=== PATIENT | female | born 1955 | race Caucasian/White ===

== ENCOUNTER 2024-07-17 11:49 | Emergency (ER) | payer OTHER ==
[~2024-07-17] VITALS: Ht 162.6 cm; Wt 59.0 kg
--- NOTE | 2024-07-17 12:09 | ERN ---
ED Note History of Present Illness Stated Complaint: ABDOMINAL PAIN Time Seen by MD: 11:50 Dictation: PATIENT IS A 69-YEAR-OLD FEMALE HERE WITH HER SISTER WITH COMPLAINTS OF HAVING ANTERIOR CHEST PAIN WORSE WITH COUGH OR INSPIRATION ONSET THREE DAYS PRIOR TO ARRIVAL. PATIENT STATES SHE HAD BEEN SICK AND BEEN COUGHING AND THEN NOW SHE IS NO LONGER COUGHING HOWEVER CONTINUES TO HAVE THE CHEST PAIN WHEN SHE PRESSES OR TAKES A DEEP BREATH. DENIES ANY HISTORY OF CAD PACEMAKER OR CARDIAC DISEASE. NO PRIMARY CARE DOCTOR LOCALLY, THEY ARE HERE ON VACATION IN [place]. Allergies: Coded Allergies: No Known Drug Allergies (Unverified Allergy, Unknown, 07/17/24) Home Meds Active Scripts Ibuprofen (Ibuprofen) 600 Mg Tablet, 600 MG PO Q6H PRN for PAIN, #30 TAB Prov:SHAYLA RANGEL NP 07/17/24 Azithromycin (Zithromax Tri-Eamon) 500 Mg Tablet, 500 MG PO DAILY for 7 Days, #7 TAB Prov:SHAYLA RANGEL ROOFER HELPER 07/17/24 Prednisone (Prednisone) 20 Mg Tablet, 1 TAB PO AD for 6 Days, #14 TAB 0 Refills TAKE 1 TAB BY MOUTH THREE TIMES PER DAY X3 DAYS, THEN TAKE 1 TAB BY MOUTH TWICE A DAY X2 DAYS, THEN TAKE 1 TAB BY MOUTH ONCE A DAY X1 DAY. Prov:SHAYLA RANGEL NP 07/17/24 Past Medical History History: Not Applicable RN Note Reviewed/Agreed w/PFSH: Yes Review of System Dictation CONSTITUTIONAL: NEGATIVE EXCEPT FOR HPI HEAD/FACE: NEGATIVE EXCEPT FOR HPI EENT: NEGATIVE EXCEPT FOR HPI RESPIRATORY: NEGATIVE EXCEPT FOR HPI CHEST PAIN WORSE WITH INSPIRATION OR COUGH GASTROINTESTINAL/ABDOMINAL: NEGATIVE EXCEPT FOR HPI GENITOURINARY: NEGATIVE EXCEPT FOR HPI MUSCULOSKELETAL: NEGATIVE EXCEPT FOR HPI INTEGUMENTARY: NEGATIVE EXCEPT FOR HPI NEUROLOGICAL/PSYCH: NEGATIVE EXCEPT FOR HPI HEMATOLOGIC/LYMPHATIC: NEGATIVE EXCEPT FOR HPI ALL SYSTEMS NEGATIVE, EXCEPT NOTED ABOVE. 13 POINT REVIEW OF SYSTEMS ASSESSED AND ALL NEGATIVE EXCEPT FOR ABOVE. Initial Vital Sign VS Vital Signs Date Time Temp Pulse Resp B/P (MAP) Pulse Ox O2 Delivery O2 Flow Rate FiO2 07/17/24 12:10 98.1 89 16 154/93 96 Room Air* 0 21 Physical Exam Dictation VITAL SIGNS REVIEWED GENERAL APPEARANCE: ALERT, ORIENTED X 3, NO ACUTE DISTRESS, WELL DEVELOPED, NOURISHED. HEAD AND FACE: NON-TRAUMATIC. EYES: PERRL, PINK CONJUNCTIVAS, EYELID NO TRAUMA, ANTERIOR CHAMBER WITH ARCUS SENILIS. EARS: PINNAS INTACT AND NO SIGNS OF TRAUMA OR ERYTHEMA EAR CANALS CLEAR AND NO DISCHARGE TM NO ERYTHEMA NOSE: NO DISCHARGE, NO BLEEDING. OROPHARYNX: MOUTH NORMAL, TONGUE PINK, PHARYNX CLEAR,NO ERYTHEMA, TONSILS NO EXUDATES, NO ABSCESSES NOTED, MUCOUS MEMBRANE MOIST NECK: SUPPLE, NON-TENDER, NO THYROMEGALY, NO MASSES, NO JVD, NO BRUITS BREAST:DEFERRED CHEST: MILD DIFFUSE ANTERIOR CHEST WALL TENDERNESS WITH PALPATION ENDERNESS, NO CREPITUS, NO PARADOXICAL MOVEMENT, NO RETRACTIONS LUNGS:CLEAR, WELL-VENTILATED, SYMMETRIC, NO RALES, NO WHEEZING, NO RHONCHI, NO STRIDOR, GOOD BREATH SOUNDS BILATERALLY HEART: REGULAR RATE, REGULAR RHYTHM, NO MURMUR, NO GALLOPS VASCULAR: NO PERIPHERAL EDEMA, ABDOMEN: SOFT, POSITIVE BOWEL SOUNDS, NONDISTENDED, NO GUARDING, NONTENDER, NO REBOUND, NO MASSES NO HEPATOMEGALY, NO SPLENOMEGALY, NO PEREZ'S SIGN, NO HERNIAS. RECTAL: DEFERRED GENITAL: DEFERRED NEUROLOGICAL: NORMAL SPEECH, MOTOR FUNCTION INTACT, SENSORY FUNCTION INTACT MUSCULOSKELETAL: NECK NONTENDER, FULL RANGE OF MOTION, BACK NONTENDER, FULL RANGE OF MOTION, EXTREMITIES: NONTENDER, FULL RANGE OF MOTION SKIN: COLOR PINK, DRY, NO TURGOR, NO RASH, NO LACERATIONS, NO ABRASIONS, NO CONTUSIONS. LYMPHATIC: DEFERRED Results (Laboratory/Radiology) Laboratory/Radiology Laboratory Tests Test 07/17/24 12:35 White Blood Count 10.2 K/uL (4.8-10.8) Red Blood Count 4.73 MIL/uL (4.00-5.50) Hemoglobin 13.5 g/dL (12.0-16.0) Hematocrit 41.3 % (36-48) Mean Corpuscular Volume 87.3 fL (79-99) Mean Corpuscular Hemoglobin 28.5 pg (27.0-33.0) Mean Corpuscular Hemoglobin Concent 32.7 g/dL (32.0-36.0) Red Cell Distribution Width 14.1 % (11.0-15.5) Platelet Count 475 K/uL (130-400) H Mean Platelet Volume 10.2 fL (7.5-10.5) Immature Granulocyte % (Auto) 0.3 % (0-1) Neutrophils (%) (Auto) 70.9 % (40.0-77.0) Lymphocytes (%) (Auto) 20.2 % (21.0-51.0) L Monocytes (%) (Auto) 6.7 % (3.0-13.0) Eosinophils (%) (Auto) 1.2 % (0.0-8.0) Basophils (%) (Auto) 0.7 % (0.0-5.0) Neutrophils # (Auto) 7.2 K/uL (1.8-7.7) Lymphocytes # (Auto) 2.1 K/uL (1.0-4.8) Monocytes # (Auto) 0.7 K/uL (0.1-1.0) Eosinophils # (Auto) 0.12 K/uL (0.00-0.70) Basophils # (Auto) 0.07 K/uL (0.00-0.20) Absolute Immature Granulocyte (auto 0.03 K/uL (0-1) Nucleated Red Blood Cells 0.0 % (0.0-0.19) Sodium Level 137 mmol/L (136-145) Potassium Level 3.8 mmol/L (3.5-5.1) Chloride Level 101 mmol/L (101-111) Carbon Dioxide Level 29 mmol/L (21-32) Blood Urea Nitrogen 12 mg/dL (7-18) Creatinine 0.6 mg/dL (0.5-1.0) Glomerular Filtration Rate Calc 97 mL/min (>90) Random Glucose 92 mg/dL (70-105) Total Calcium 10.0 mg/dL (8.5-10.1) Troponin I High Sensitivity 4 ng/L (4-50) INDICATION: CHEST PAIN WITH COUGH THREE DAYS TECHNIQUE: CHEST 1VW COMPARISON: None FINDINGS/IMPRESSION: Prominent bilateral interstitial markings which may represent bronchitis or vascular congestion in the proper clinical setting. Cardiac silhouette is within normal limits. Mild degenerative changes of the spine. The visualized upper abdomen appears unremarkable. Labs Reviewed?: Yes EKG Comment: PROCEDURE: EKG - 12 LEAD EKG TRACING- TECHNICAL [facility] Test Date: 2024-07-17 Test Time: 15:08:49 Pat Name: MARTINEZ MARCELINO Department: [facility] Patient [place] [facility] [place] [facility] [id number] Room: Gender: Female Fire Medic: [id number] : 1955 Requested By: SHAYLA RANGEL Order Number: [id number] Reading MD: Measurements Intervals [place] Rate: 87 P: 54 ND: 136 QRS: 42 QRSD: 96 T: -17 QT: 378 QTc: 454 Interpretive Statements Sinus rhythm Probable left atrial enlargement Left ventricular hypertrophy Lateral infarct, age indeterminate No previous ECG available for comparison Please click the below link to view image of tracing. ED Course ED Course Orders Procedure Category Date Status Time Dexamethasone 4mg/Ml PHA 07/17/24 Complete 1ml Vial (Dexametha 12:30 Ibuprofen 600 Mg PHA 07/17/24 Complete Tablet (Motrin) 12:30 Cbc With Differential LAB 07/17/24 Complete 12:07 Troponin I High LAB 07/17/24 Complete Sensitivity 12:07 12 Lead Ekg Tracing- EKG 07/17/24 Resulted Technical 12:07 Chest 1vw RAD 07/17/24 Resulted 12:07 Basic Metabolic Panel LAB 07/17/24 Complete 12:07 Azithromycin PHA 07/17/24 Complete (Zithromax) 19:30 Dexamethasone 4mg/Ml PHA 07/17/24 Complete 1ml Vial (Dexametha 19:47 Ibuprofen 200 Mg PHA 07/17/24 Complete Tablet (Motrin) 19:47 Current Medications Medications (Trade) Dose Ordered Sig/Popeye Route PRN Reason Start Time Stop Time Status Last Admin Dose Admin Azithromycin (Zithromax) 500 mg ONCE ONCE PO 07/17/24 19:30 07/17/24 19:31 DC 07/17/24 19:48 Dexamethasone Sodium Phosphate (dexaMETHasone 4MG/ML 1ML VIAL) 4 mg STK-MED ONCE .ROUTE 07/17/24 19:47 07/17/24 19:47 DC Dexamethasone Sodium Phosphate (dexaMETHasone 4MG/ML 1ML VIAL) 8 mg ONCE ONCE IM 07/17/24 12:30 07/17/24 12:31 DC 07/17/24 12:30 Ibuprofen (moTRIN) 200 mg STK-MED ONCE .ROUTE 07/17/24 19:47 07/17/24 19:47 DC Ibuprofen (moTRIN) 600 mg ONCE ONCE PO 07/17/24 12:30 07/17/24 12:31 DC 07/17/24 12:30 Vital Signs Date Time Temp Pulse Resp B/P (MAP) Pulse Ox O2 Delivery O2 Flow Rate FiO2 07/17/24 19:40 98.1 82 16 150/80 98 Room Air* 0 21 07/17/24 12:10 98.1 89 16 154/93 96 Room Air 07/17/24 12:10 98.1 89 16 154/93 96 Room Air* 0 1924 patient will be treated for costochondritis and acute bacterial bronchitis. She will be given Zithromax Decadron and ibuprofen here she will be discharged home with prednisone and azithromycin ox/Tessalon and told to see her doctor HEART Score Response (Comments) Value EKG: Repolarization changes 1 Age: > 65yrs (+2) 2 Risk Factors: 1-2 risk factors (+1) 1 Initial Troponin: Normal limit (0) 0 Total 4 Medical Decision Making MDM MDM: Differential diagnosis: Costochondritis/ACS/AMI/bronchitis/pneumonia/electrolyte imbalance/dehy dration/cough Rationale: Tests considered and ordered secondary to shared decision making include: EKG/labs/radiology Previous outside records reviewed: Old ER visits. Risk of complication and/or morbidity or mortality of patient management: None Medications-Per medication reconciliation Need for hospitalization: Patient does not meet criteria for hospitalization. No Need for emergency major/minor surgery: No There are no social concerns with this patient. Prescription drug management ibuprofen/prednisone/azithromycin Prescriptions will include symptomatic care Patient's prior external medical records from other ER visits were reviewed by me as indicated. Prior testing and results from previous visits were reviewed. Prior tests were taken into account with medical decision making and resource utilization, independent historian/historians were used to obtain complete medical history. I independently interpreted the test that were performed, results were reviewed by me and considered findings on radiology if ordered. Medical management and examination interpretation discussions were had by me with other qualified healthcare professionals as indicated for the patient's care. DX & DISP Disposition: Discharge Departure Impression: Primary Impression: Costochondritis, acute Condition: Stable Scripts Ibuprofen (Ibuprofen) 600 Mg Tablet 600 MG PO Q6H PRN for PAIN, #30 TAB Prov: SHAYLA RANGEL ROOFER HELPER 07/17/24 Azithromycin (Zithromax Tri-Eamon) 500 Mg Tablet 500 MG PO DAILY for 7 Days, #7 TAB Prov: SHAYLA RANGEL ROOFER HELPER 07/17/24 Prednisone (Prednisone) 20 Mg Tablet 1 TAB PO AD for 6 Days, #14 TAB 0 Refills TAKE 1 TAB BY MOUTH THREE TIMES PER DAY X3 DAYS, THEN TAKE 1 TAB BY MOUTH TWICE A DAY X2 DAYS, THEN TAKE 1 TAB BY MOUTH ONCE A DAY X1 DAY. Prov: SHAYLA RANGEL NP 07/17/24 Additional Instructions: Follow-up with primary care provider in 1 to 2 days. Take medications as directed here in the emergency room. Okay to continue home medications unless otherwise discussed during your visit in the emergency room today. Return to your nearest emergency room if symptoms worsen or if there is no improvement. Call 911 if you need immediate assistance. Take Tylenol or Motrin [id number] as needed and if no contraindications are present. Increase oral hydration. A wound culture or urine culture was ordered here in the emergency room department please follow-up with primary care provider and advise them to get repeat ports from our facility. If you had any Hamzah wrap/splints that were applied here, please do not remove them until you see your primary care or specialty. Take azithromycin as directed until gone. Take ibuprofen every8 hours with food for the next two days. See your primary care doctor in 1-2 days Referrals: SELF,REFERRAL (PCP) I have reviewed the case, and I agree with, Diagnosis and Plan I performed the substantive portion of the visit. I have reviewed and personally made and approve the management plan that is documented in the notes by myself or the SONY. I acknowledge full responsibility for the patient's management plan. SHAYLA RANGEL NP Jul 17, 2024 12:09 EILEEN ARROYO MD Jul 18, 2024 16:32
[2024-07-17] MEDS: ibuPROFEN 600 MG TABLET PO ONE (12:30)
[2024-07-17] MEDS: dexaMETHasone SOD PHOSPHATE 4 MG/ML 1ML VIAL IM ONE (12:30)
[2024-07-17 12:45] LABS: BASOPHILS # (AUTO) 0.07 K/uL (0.00-0.20); BASOPHILS % (AUTO) 0.7 % (0.0-5.0); EOSINOPHILS # (AUTO) 0.12 K/uL (0.00-0.70); EOSINOPHILS % (AUTO) 1.2 % (0.0-8.0); HEMATOCRIT 41.3 % (36-48); IMMATURE GRANULOCYTE ABSOLUTE 0.03 K/uL (0-1); LYMPHOCYTES # (AUTO) 2.1 K/uL (1.0-4.8); LYMPHOCYTES % (AUTO) 20.2 % (21.0-51.0); MEAN CORPUSCULAR HEMOGLOBIN 28.5 pg (27.0-33.0); MEAN CORPUSCULAR HGB CONC 32.7 g/dL (32.0-36.0); MEAN CORPUSCULAR VOLUME 87.3 fL (79-99); MONOCYTES # (AUTO) 0.7 K/uL (0.1-1.0); MONOCYTES % (AUTO) 6.7 % (3.0-13.0); NEUTROPHILS # (AUTO) 7.2 K/uL (1.8-7.7); NEUTROPHILS % (AUTO) 70.9 % (40.0-77.0); PLATELET COUNT (AUTO) 475 K/uL (130-400); RED BLOOD CELL COUNT(AUTO) 4.73 MIL/uL (4.00-5.50); RED CELL DISTRIBUTION WIDTH 14.1 % (11.0-15.5); WHITE BLOOD COUNT (AUTO) 10.2 K/uL (4.8-10.8)
[2024-07-17 12:54] LABS: CREATININE 0.6 mg/dL (0.5-1.0); POTASSIUM 3.8 mmol/L (3.5-5.1)
--- NOTE | 2024-07-17 14:13 | HMCIMG ---
INDICATION: CHEST PAIN WITH COUGH THREE DAYS TECHNIQUE: CHEST 1VW COMPARISON: None FINDINGS/IMPRESSION: Prominent bilateral interstitial markings which may represent bronchitis or vascular congestion in the proper clinical setting. Cardiac silhouette is within normal limits. Mild degenerative changes of the spine. The visualized upper abdomen appears unremarkable.
--- NOTE | 2024-07-17 16:57 | EKG ---
[facility] Test Date: 2024-07-17 Test Time: 15:08:49 Pat Name: MARTINEZ BENSON Department: ED Room: Gender: F Benefits Officer: [id number] : 1955 Requested By: SHAYLA RANGEL Order Number: [id number] Reading MD: Marline Srivastava Measurements Intervals [place] Rate: 87 P: 54 IA: 136 QRS: 42 QRSD: 96 T: -17 QT: 378 QTc: 454 Interpretive Statements Sinus rhythm Probable left atrial enlargement Left ventricular hypertrophy Lateral infarct, age indeterminate No previous ECG available for comparison Electronically Signed On 07-18-2024 16:08:18 RESEARCH PROJECT COORDINATOR by Marline Srivastava Please click the below link to view image of tracing.
[2024-07-17] MEDS ORDERED: PRED20TA3 PO (19:29)
[2024-07-17] MEDS ORDERED: IBUP-2070 PO (19:29)
[2024-07-17] MEDS ORDERED: AZIT500T2 PO (19:29)
--- NOTE | 2024-07-17 19:32 | NUR ---
PT TO FT AT THIS TIME
[2024-07-17 19:40] VITALS: BP 150/80; PULSE 82; RESP 16; TEMP 98.1; O2SAT 98
[2024-07-17] MEDS ORDERED: dexaMETHasone SOD PHOSPHATE 4 MG/ML 1ML VIAL ONE (19:47)
[2024-07-17] MEDS ORDERED: ibuPROFEN 200 MG TAB ONE (19:47)
[2024-07-17] MEDS: AZITHROMYCIN 250 MG TABLET PO ONE (19:48)
== END 2024-07-17 20:05 | disposition home or self-care (01) ==
LOC: EDH 11:49
DX: M94.0 Chondrocostal junction syndrome [Tietze] (principal); Z79.899 Other long term (current) drug therapy
CPT/HCPCS: 99285; 71045; 84484; 80048; 85025; 36415; 96372; 93005; J1100